=== PATIENT | female | born 1985 | race Two or more races ===

== ENCOUNTER 2019-09-25 12:00 | Observation (INO) | payer MEDICAID | END 2019-09-25 13:45 | disposition home or self-care (01) | DRG 566 | LOC: LDRP 12:00 | PROVIDERS: ADMIT Specialist; ATTEND Specialist | DX: O36.8930 Maternal care for other specified fetal problems, third trimester, not applicable or unspecified (principal); Z3A.30 30 weeks gestation of pregnancy | CPT/HCPCS: 59025; 81002; G0378 ==

== ENCOUNTER 2019-09-28 12:52 | Observation (INO) | payer MEDICAID ==
[2019-09-28] MEDS ORDERED: PREN-96 PO (14:58)
== END 2019-09-28 16:10 | disposition home or self-care (01) | DRG 566 ==
LOC: LDRP 12:52
PROVIDERS: ADMIT Specialist; ATTEND Specialist
DX: O36.5930 Maternal care for other known or suspected poor fetal growth, third trimester, not applicable or unspecified (principal); Z3A.30 30 weeks gestation of pregnancy
CPT/HCPCS: 59025; 76818; 81002; G0378

== ENCOUNTER 2019-10-03 10:08 | Observation (INO) | payer MEDICAID ==
[~2019-10-03 10:08] MED LIST: PREN-96 PO
== END 2019-10-03 11:14 | disposition home or self-care (01) | DRG 566 ==
LOC: LDRP 10:08
PROVIDERS: ADMIT Specialist; ATTEND Specialist
DX: O36.8930 Maternal care for other specified fetal problems, third trimester, not applicable or unspecified (principal); Z3A.31 31 weeks gestation of pregnancy
CPT/HCPCS: 59025; 76818; 81002; G0378

== ENCOUNTER 2019-10-06 09:11 | Observation (INO) | payer MEDICAID | END 2019-10-06 10:50 | disposition home or self-care (01) | DRG 566 | LOC: LDRP 09:11 | PROVIDERS: ADMIT Specialist; ATTEND Specialist | DX: O36.8930 Maternal care for other specified fetal problems, third trimester, not applicable or unspecified (principal); Z3A.31 31 weeks gestation of pregnancy | CPT/HCPCS: 59025; 76818; 81002; G0378 ==

== ENCOUNTER 2019-10-10 11:16 | Observation (INO) | payer MEDICAID | END 2019-10-10 12:55 | disposition home or self-care (01) | DRG 566 | LOC: LDRP 11:16 | PROVIDERS: ADMIT Specialist; ATTEND Specialist | DX: O35.8XX0 Maternal care for other (suspected) fetal abnormality and damage, not applicable or unspecified (principal); Z3A.32 32 weeks gestation of pregnancy | CPT/HCPCS: 59025; 76818; 81002; G0378 ==

== ENCOUNTER 2019-10-13 10:00 | Observation (INO) | payer MEDICAID | END 2019-10-13 11:15 | disposition home or self-care (01) | DRG 566 | LOC: LDRP 10:00 | PROVIDERS: ADMIT Obstetrics & Gynecology; ATTEND Obstetrics & Gynecology | DX: O36.8930 Maternal care for other specified fetal problems, third trimester, not applicable or unspecified (principal); Z3A.32 32 weeks gestation of pregnancy | CPT/HCPCS: 59025; 76818; 81002; G0378 ==

== ENCOUNTER 2019-10-16 14:39 | Observation (INO) | payer MEDICAID | END 2019-10-16 15:55 | disposition home or self-care (01) | DRG 566 | LOC: LDRP 14:39 | PROVIDERS: ADMIT Obstetrics & Gynecology; ATTEND Obstetrics & Gynecology | DX: O69.89X0 Labor and delivery complicated by other cord complications, not applicable or unspecified (principal); Z3A.33 33 weeks gestation of pregnancy | CPT/HCPCS: 59025; 76818; 81002; G0378 ==

== ENCOUNTER 2019-10-19 13:07 | Observation (INO) | payer MEDICAID | END 2019-10-19 15:32 | disposition home or self-care (01) | DRG 566 | LOC: LDRP 13:07 | PROVIDERS: ADMIT Specialist; ATTEND Specialist | DX: O69.89X0 Labor and delivery complicated by other cord complications, not applicable or unspecified (principal); Z3A.33 33 weeks gestation of pregnancy | CPT/HCPCS: 59025; 76818; 81002; G0378 ==

== ENCOUNTER 2019-10-20 15:37 | Observation (INO) | payer MEDICAID | END 2019-10-20 16:40 | disposition home or self-care (01) | DRG 566 | LOC: LDRP 15:37 → UNDODISOB 16:40 | PROVIDERS: ADMIT Obstetrics & Gynecology; ATTEND Obstetrics & Gynecology | DX: O36.8930 Maternal care for other specified fetal problems, third trimester, not applicable or unspecified (principal); R10.33 Periumbilical pain; Z3A.33 33 weeks gestation of pregnancy | CPT/HCPCS: 59025; 81002; G0378 ==

== ENCOUNTER 2019-10-22 07:50 | Observation (INO) | payer MEDICAID | END 2019-10-22 09:00 | disposition home or self-care (01) | DRG 566 | LOC: LDRP 07:50 | PROVIDERS: ADMIT Obstetrics & Gynecology; ATTEND Obstetrics & Gynecology | DX: O36.8991 Maternal care for other specified fetal problems, unspecified trimester, fetus 1 (principal); Z3A.33 33 weeks gestation of pregnancy | CPT/HCPCS: 59025; 76818; 81002; G0378 ==

== ENCOUNTER 2019-10-25 08:11 | Observation (INO) | payer MEDICAID | END 2019-10-25 09:20 | disposition home or self-care (01) | DRG 566 | LOC: LDRP 08:11 | PROVIDERS: ADMIT Specialist; ATTEND Specialist | DX: O36.8193 Decreased fetal movements, unspecified trimester, fetus 3 (principal); O09.523 Supervision of elderly multigravida, third trimester; Z3A.34 34 weeks gestation of pregnancy | CPT/HCPCS: 59025; 76818; 81002; G0378 ==

== ENCOUNTER 2019-10-30 08:18 | Observation (INO) | payer MEDICAID | END 2019-10-30 09:50 | disposition home or self-care (01) | DRG 566 | LOC: LDRP 08:18 | PROVIDERS: ADMIT Specialist; ATTEND Specialist | DX: O35.8XX0 Maternal care for other (suspected) fetal abnormality and damage, not applicable or unspecified (principal); Z3A.35 35 weeks gestation of pregnancy | CPT/HCPCS: 59025; 76818; 81002; G0378 ==

== ENCOUNTER 2019-11-02 08:05 | Observation (INO) | payer MEDICAID | END 2019-11-02 09:16 | disposition home or self-care (01) | DRG 566 | LOC: LDRP 08:05 | PROVIDERS: ADMIT Specialist; ATTEND Specialist | DX: O36.8930 Maternal care for other specified fetal problems, third trimester, not applicable or unspecified (principal); Z3A.35 35 weeks gestation of pregnancy | CPT/HCPCS: 59025; 76818; 81002; G0378 ==

== ENCOUNTER 2019-11-06 08:21 | Observation (INO) | payer MEDICAID | END 2019-11-06 09:55 | disposition home or self-care (01) | DRG 566 | LOC: LDRP 08:21 | PROVIDERS: ADMIT Specialist; ATTEND Specialist | DX: O36.8930 Maternal care for other specified fetal problems, third trimester, not applicable or unspecified (principal); Z3A.36 36 weeks gestation of pregnancy | CPT/HCPCS: 59025; 76818; 81002; 82948; 82962; G0378 ==

== ENCOUNTER 2019-11-09 08:06 | Observation (INO) | payer MEDICAID | END 2019-11-09 08:56 | disposition home or self-care (01) | DRG 566 | LOC: LDRP 08:06 | PROVIDERS: ADMIT Specialist; ATTEND Specialist | DX: O36.8930 Maternal care for other specified fetal problems, third trimester, not applicable or unspecified (principal); Z3A.36 36 weeks gestation of pregnancy | CPT/HCPCS: 59025; 76818; 81002; G0378 ==

== ENCOUNTER 2019-11-13 08:25 | Observation (INO) | payer MEDICAID | END 2019-11-13 10:06 | disposition home or self-care (01) | DRG 566 | LOC: LDRP 08:25 | PROVIDERS: ADMIT Specialist; ATTEND Specialist | DX: O62.9 Abnormality of forces of labor, unspecified (principal); O36.8939 Maternal care for other specified fetal problems, third trimester, other fetus; R10.9 Unspecified abdominal pain; Z3A.37 37 weeks gestation of pregnancy | CPT/HCPCS: 59025; 76818; 81002; G0378 ==

== ENCOUNTER 2019-11-16 08:15 | Observation (INO) | payer MEDICAID | END 2019-11-16 09:23 | disposition home or self-care (01) | DRG 566 | LOC: LDRP 08:15 | PROVIDERS: ADMIT Specialist; ATTEND Specialist | DX: O69.89X0 Labor and delivery complicated by other cord complications, not applicable or unspecified (principal); Z3A.37 37 weeks gestation of pregnancy; Z91.040 Latex allergy status | CPT/HCPCS: 59025; 76818; 81002; 82962; G0378 ==

== ENCOUNTER 2019-11-20 08:21 | Observation (INO) | payer MEDICAID | END 2019-11-20 09:25 | disposition home or self-care (01) | DRG 566 | LOC: LDRP 08:21 | PROVIDERS: ADMIT Specialist; ATTEND Specialist | DX: O69.89X0 Labor and delivery complicated by other cord complications, not applicable or unspecified (principal); Z3A.38 38 weeks gestation of pregnancy; Z91.040 Latex allergy status | CPT/HCPCS: 59025; 76818; 81002; 82948; 82962; G0378 ==

== ENCOUNTER 2019-11-23 05:11 | Observation (INO) | payer MEDICAID ==
[~2019-11-23] VITALS: Ht 154.9 cm; Wt 90.7 kg
== END 2019-11-23 09:42 | disposition home or self-care (01) | DRG 566 ==
LOC: LDRP 05:11
PROVIDERS: ADMIT Specialist; ATTEND Specialist
DX: O36.8931 Maternal care for other specified fetal problems, third trimester, fetus 1 (principal); O09.523 Supervision of elderly multigravida, third trimester; Z3A.38 38 weeks gestation of pregnancy
CPT/HCPCS: 59025; 76818; 81002; G0378

== ENCOUNTER 2019-11-27 09:08 | Observation (INO) | payer MEDICAID | END 2019-11-27 10:25 | disposition home or self-care (01) | DRG 566 | LOC: LDRP 09:08 | PROVIDERS: ADMIT Specialist; ATTEND Specialist | DX: O36.8931 Maternal care for other specified fetal problems, third trimester, fetus 1 (principal); O09.523 Supervision of elderly multigravida, third trimester; Z3A.39 39 weeks gestation of pregnancy | CPT/HCPCS: 59025; 76818; 81002; G0378 ==

== ENCOUNTER 2019-11-30 10:06 | Observation (INO) | payer MEDICAID | END 2019-11-30 11:25 | disposition home or self-care (01) | DRG 566 | LOC: LDRP 10:06 | PROVIDERS: ADMIT Specialist; ATTEND Specialist | DX: O36.8930 Maternal care for other specified fetal problems, third trimester, not applicable or unspecified (principal); Z3A.39 39 weeks gestation of pregnancy | CPT/HCPCS: 59025; 76818; 81002; G0378 ==

== ENCOUNTER 2019-12-04 08:20 | Observation (INO) | payer MEDICAID | END 2019-12-04 09:25 | disposition home or self-care (01) | DRG 566 | LOC: LDRP 08:20 | PROVIDERS: ADMIT Obstetrics & Gynecology; ATTEND Obstetrics & Gynecology | DX: O36.8930 Maternal care for other specified fetal problems, third trimester, not applicable or unspecified (principal); Z3A.40 40 weeks gestation of pregnancy | CPT/HCPCS: 59025; 76818; 81002; G0378 ==

== ENCOUNTER 2019-12-05 11:15 | Inpatient (IN) | payer MEDICAID ==
[~2019-12-05] VITALS: Ht 154.9 cm; Wt 95.3 kg
[2019-12-05] MEDS ORDERED: LACT. RINGERS/OXYTOCIN 20UNITS 500 ML IV ONE ×2 (11:18→14:44)
[2019-12-05] MEDS ORDERED: LACTATED RINGER'S 1,000 ML IV SCH (11:30)
[2019-12-05] MEDS ORDERED: NALBUPHINE HCL 10 MG/1ml INJECTION IV PRN (11:30)
[2019-12-05] MEDS ORDERED: PHISODERM TOP SOLN 240ML BTL TOP PRN (11:30)
[2019-12-05] MEDS ORDERED: WITCH HAZEL-GLYCERIN PAD TOP PRN (11:30)
[2019-12-05] MEDS ORDERED: DERMOPLAST 60ML BOTTLE TOP PRN (11:30)
[2019-12-05] MEDS ORDERED: LIDOCAINE 2%HCL (LOCAL ANESTH.) INJ 20ML MDV ID PRN ×2 (11:30→14:45)
[2019-12-05] MEDS ORDERED: LACT. RINGERS/OXYTOCIN 20UNITS 1,000 ML IV SCH ×2 (12:18→15:44)
[2019-12-05 15:46] LABS: Basophils # (auto) 0 10 ^3/uL (0-0.2); Basophils % (auto) 0.2 % (0.0-2.0); Eosinophils # (auto) 0.1 10 ^3/uL (0-0.8); Eosinophils % (auto) 0.9 % (0.0-7.0); Hematocrit 36.7 % (36.0-46.0); Lymphocytes # (auto) 1.2 10 ^3/uL (0.4-5.4); Lymphocytes % (auto) 17.3 % (10.0-50.0); Mean Corpuscular Hemoglobin 28.9 pg (28.0-32.0); Mean Corpuscular Hgb Conc. 32.8 g/dL (32.0-36.0); Monocytes # (auto) 0.5 10 ^3/uL (0-1.3); Monocytes % (auto) 7.8 % (0.0-12.0); Neutrophils # (auto) 5.2 10 ^3/uL (1.6-8.6); Neutrophils % (auto) 73.8 % (37.0-80.0); Nucleated Red Blood Cells % 0.1 %; Platelet Count (auto) 259 10^3/uL (140-450); Red Blood Cells 4.17 10^6/uL (4.0-5.20); Red Cell Distribution Width 15.7 % (11.8-14.3)
[2019-12-05 16:02] LABS: INR 0.96 (0.9-1.15); Partial Thromboplastin Time 26.2 sec (23.64-32.05)
[2019-12-05 16:03] LABS: Albumin 2.4 g/dL (3.4-5.0); Calcium 8.3 mg/dL (8.5-10.1); Potassium 3.7 mmol/L (3.5-5.1)
[2019-12-05 16:06] LABS: BUN/Creatinine Ratio 18.5; Bilirubin, Total 0.2 mg/dL (0.2-1.0); Total Protein 6.4 g/dL (6.4-8.2)
[2019-12-05] MEDS: LACTATED RINGER'S 1,000 ML IV SCH ×2 (16:31→22:45)
[2019-12-05] MEDS: miSOPROStol 50 MCG per PRE-CUT 1/2 TAB PO PRN ×2 (17:02→21:19)
[2019-12-05 18:42] LABS: Urine Bacteria NONE SEEN /hpf (None Seen); Urine Blood Negative /uL (Negative); Urine Mucus FEW (None Seen); Urine Specific Gravity 1.032 (1.001-1.035); Urine WBC 1 /hpf (0 - 5)
[2019-12-05] MEDS ORDERED: LACTATED RINGER'S 1,000 ML IV ONE (23:41)
[2019-12-05] MEDS ORDERED: ePHEDrine SULFATE 50 MG/ML AMP IV ONE (23:45)
[2019-12-05] MEDS ORDERED: ROPIVACAINE HCL 100 ML EPI SCH (23:45)
[2019-12-06] MEDS ORDERED: NALOXONE HCL 0.4 MG/ML VIAL IV ONE (00:45)
[2019-12-06] MEDS ORDERED: ROPIVACAINE HCL 100 ML EPI SCH (00:45)
[2019-12-06] MEDS ORDERED: ePHEDrine SULFATE 50 MG/ML AMP IV ONE (00:45)
[2019-12-06] MEDS ORDERED: SODIUM CHLORIDE 0.9% 500 ML IV PRN (00:45)
[2019-12-06] MEDS ORDERED: LACT. RINGERS/OXYTOCIN 20UNITS 1,000 ML IV SCH (03:32)
[2019-12-06] MEDS ORDERED: WITCH HAZEL-GLYCERIN PAD TOP PRN (03:45)
[2019-12-06] MEDS ORDERED: TERBUTALINE SULFATE 1 MG/ML 1ML VIAL SC ONE (03:45)
[2019-12-06] MEDS ORDERED: DERMOPLAST 60ML BOTTLE TOP PRN (03:45)
[2019-12-06] MEDS ORDERED: PHISODERM TOP SOLN 240ML BTL TOP PRN (03:45)
[2019-12-06] MEDS ORDERED: ACETAMINOPHEN 325 MG TAB PO PRN (08:30)
--- NOTE | 2019-12-06 08:30 | NUR ---
Teaching: Reviewed information in [employer] booklet with patient. Discussed benefits of and risks associated with not . Discussed different positions, proper latch, feeding cues, and baby-led . Provided information of medication side effects related to . All questions and concerns addressed at this time. Patient verbalized understanding of information.
[2019-12-06] MEDS: IBUPROFEN 600 MG TAB PO PRN ×3 (08:50→20:57)
[2019-12-06 11:10] VITALS: BP 116/66
--- NOTE | 2019-12-06 14:13 | NUR ---
Discussed with PT the importance of not sleeping in the bed with the baby. PT verbalizes understanding.
[2019-12-06 15:10] VITALS: BP 115/67
[2019-12-06 18:45] VITALS: BP 124/88
[2019-12-06 23:00] VITALS: BP 99/50
[2019-12-07] MEDS: IBUPROFEN 600 MG TAB PO PRN (01:41)
[2019-12-07] MEDS ORDERED: TUBERCULIN PPD 5 UNIT/0.1 ML ID ONE (02:00)
[2019-12-07 03:15] VITALS: BP 111/64
[2019-12-07 05:07] LABS: RPR Non Reactive (Non Reactive)
[2019-12-07 07:00] VITALS: BP 119/76
--- NOTE | 2019-12-07 07:25 | NUR ---
IV removal IV DC'd with sterile technique, catheter fully intact. Pressure dressing applied to site. Patient tolerated procedure well. Discharged with aftercare instructions per MD. Addendum: 12/07/19 at 0840 by ISAI PAPPAS RN Amended: Links added.
--- NOTE | 2019-12-07 09:30 | NUR ---
Discharge: Discharge instructions given as ordered. Pt encouraged to follow up with MAINTAINER OPERATOR as instructed. All questions and concerns addressed. Patient verbalized understanding. Medication reconciliation completed and copy given to patient. All required/requested vaccines given and copies of vaccinations given to patient. Patient encouraged to prepare to depart unit. Prescription for Motrin 800mg PO q 8 hours prn pain called into [facility] per Emily Kerr CNM.
--- NOTE | 2019-12-07 10:35 | NUR ---
Discharge: Patient taken to vehicle via ambulation with all personal belongings, accompanied by staff and family member. No distress noted at time of departure, no adverse changes in status since initial assessment. Prescription from [facility] pharmacy picked up by RN and given to patient.
== END 2019-12-07 10:35 | disposition home or self-care (01) | DRG 560 ==
LOC: UNDOADMIN 11:15 → LDRP 11:15
PROVIDERS: ADMIT Specialist; ATTEND Specialist
PROC: 10E0XZZ Delivery of Products of Conception, External Approach (ICD-10-PCS; principal; 2019-12-06)
PROC: 3E0R3BZ Introduction of Anesthetic Agent into Spinal Canal, Percutaneous Approach (ICD-10-PCS; 2019-12-06)
PROC: 00HU33Z Insertion of Infusion Device into Spinal Canal, Percutaneous Approach (ICD-10-PCS; 2019-12-06)
PROC: 0HQ9XZZ Repair Perineum Skin, External Approach (ICD-10-PCS; 2019-12-06)
DX: O48.0 Post-term pregnancy (principal); O70.0 First degree perineal laceration during delivery; Z37.0 Single live birth; Z3A.40 40 weeks gestation of pregnancy; Z11.59 Encounter for screening for other viral diseases
CPT/HCPCS: 36415; 59025; 59409; 62282; 80053; 81001; 84112; 85025; 85610; 85730; 86592; 86850; 86900; 86901; 94760; 96360; 96361; 96365; 96366; G0378; J2590